=== PATIENT | female | born 1995 | race Caucasian/White ===

== ENCOUNTER 2019-09-04 18:26 | Emergency (ER) | payer BC ==
[2019-09-04 20:13] LABS: BLOOD UREA NITROGEN,BUN 11 mg/dL (7.0-18.0); CARBON DIOXIDE,CO2 26.1 mmol/L (21.0-32.0); CHLORIDE,CL 103 mmol/L (98-107); GLUCOSE RANDOM 96 mg/dL (74-106); POTASSIUM,K 3.8 mmol/L (3.5-5.1); SODIUM,NA 139 mmol/L (136-145)
--- NOTE | 2019-09-04 20:14 | EDM.PDOC ---
ED HPI GENERAL MEDICAL PROBLEM - General Chief Complaint: Headache Stated Complaint: MEMORY LOSS, MIGRAINE Time Seen by Provider: 09/04/19 19:01 Source of Information: Reports: Patient - History of Present Illness INITIAL COMMENTS - FREE TEXT/NARRATIVE: THEODORA HPI: This is a 24-year-old female that had a migrating headache for a week. It is not severe or sudden in onset. It is a minor headache. Patient also says she is having difficulty concentrating and feeling lightheaded when she stands up. Patient's last period was over a month ago. No significant bleeding no vomiting nausea diarrhea constipation abdominal pain dysuria polyuria or trauma to the head. No chest pain or palpitations ports sleeping less than 6 hours per night she is busy with her 3-year-old PMHX/PSHX: Negative Social History: Negative for tobacco, negative for alcohol, negative for street drugs or marijuana Family history: Hypertension ROS: see chart PE: VS afebrile vital signs stable General: No apparent distress Head: Atraumatic normocephalic no lumps bumps or bruises Eyes: EOMI PERRLA Ears: TMs intact no hemotympanum no signs of infection no mastoid tenderness Nose: No epistaxis nares patent no septal wall hematoma Throat: No pharyngeal erythema or exudate no tonsillar enlargement Neck: Supple, no cervical lymphadenopathy Chest wall: No point tenderness Heart: Regular rate and rhythm without murmur gallop or rub Lungs: Clear to auscultation and percussion without rales rhonchi or wheeze Abdomen: Soft nontender nondistended without guarding rigidity or rebound Neck: No spinal point tenderness full range of motion in all 6 directions Back: No spinal paraspinal or CVA tenderness Extremities: full rom through out. no effusions skin: Warm dry intact no rashes neurologic: cranial nerves II through XII intact. No focal motor or sensory deficits noted. NIH of 0. No cerebellar signs. Normal gait. Normal heel-to- toe. MDM: Differential diagnosis: Intracranial bleed tumor mass stroke anemia electrolyte abnormality ED course: Patient has no history or signs of trauma therefore CT imaging not indicated. Neurologic exam is entirely normal therefore no signs of a CVA. Patient not at risk for thrombotic headache. Headache not at all consistent with a subarachnoid hemorrhage in that it is not the worst headache of her life nor is it sudden in onset. CBC and chemistries and test are negative. No signs of anemia. I suspect the symptoms may be secondary to lack of sleep I have suggested patient try to get a full night sleep for the next few nights and then follow-up with her primary care doctor as needed for further outpatient evaluation no signs of any intercranial neurologic or other emergency. Orthostatics negative. No one else that is in the house has similar symptoms so I do not think this is a carbon monoxide issue. Patient stable for discharge Diagnosis: Headache Disposition: Home headache Pain Score (Numeric/FACES): 3 - Related Data Allergies Allergy/AdvReac Type Severity Reaction Status Date / Time tramadol Allergy Anaphylactic Verified 09/04/19 19:01 Shock Home Meds: Home Meds Iron,Carbonyl/Vit C/Vit B12/Fa [Iron 100 Plus Tablet] 1 tab PO DAILY 09/04/19 [ History] Norethindrone-E.estradiol-Iron [Junel Fe 1.5 MG-30 MCG] 1 tab PO DAILY 09/04/19 [History] Past Medical History [employer] History: Reports: , Other (See Below) Other [employer] History: ovarian cysts Social & Family History - Tobacco Use Smoking Status *Q: Former Smoker Used Tobacco, but Quit: Yes Month/Year Tobacco Last Used: 06/2019 - Caffeine Use Caffeine Use: Reports: Coffee, Soda - Recreational Drug Use Recreational Drug Use: No ED ROS GENERAL - Review of Systems Review Of Systems: Comprehensive ROS is negative, except as noted in HPI. - Physical Exam Exam: See Below Text/Narrative:: See my dictation Course - Vital Signs Last Recorded V/S: Last Vital Signs Temp 36.4 C 09/04/19 19:03 Pulse 102 H 09/04/19 19:03 Resp 16 09/04/19 19:03 BP 112/73 09/04/19 19:03 Pulse Ox 100 09/04/19 19:03 - Orders/Labs/Meds Orders: Active Orders 24 hr Category Date Time Status BMP [BASIC METABOLIC PANEL,BMP] [CHEM] Stat Lab 09/04/19 19:50 Received Labs: Laboratory Tests 09/04/19 09/04/19 09/04/19 Range/Units 19:43 19:43 19:50 WBC 8.49 (4.0-11.0) K/uL RBC 4.96 (4.30-5.90) M/uL Hgb 15.1 (12.0-16.0) g/dL Hct 43.4 (36.0-46.0) % MCV 87.5 (80.0-98.0) fL MCH 30.4 (27.0-32.0) pg MCHC 34.8 (31.0-37.0) g/dL RDW Std Deviation 40.3 (28.0-62.0) fl RDW Coeff of Maral 13 (11.0-15.0) % Plt Count 251 (150-400) K/uL MPV 9.70 (7.40-12.00) fL Neut % (Auto) 63.9 (48.0-80.0) % Lymph % (Auto) 30.5 (16.0-40.0) % [place] % (Auto) 4.7 (0.0-15.0) % Eos % (Auto) 0.7 (0.0-7.0) % Baso % (Auto) 0.2 (0.0-1.5) % Neut # (Auto) 5.4 (1.4-5.7) K/uL Lymph # (Auto) 2.6 H (0.6-2.4) K/uL [place] # (Auto) 0.4 (0.0-0.8) K/uL Eos # (Auto) 0.1 (0.0-0.7) K/uL Baso # (Auto) 0.0 (0.0-0.1) K/uL Nucleated RBC % 0.0 /100WBC Nucleated RBCs # 0 K/uL Urine Color YELLOW Urine Appearance HAZY Urine pH 7.0 (5.0-8.0) Ur Specific [place] 1.015 (1.001-1.035) Urine Protein NEGATIVE (NEGATIVE) mg/dL Urine Glucose (UA) NEGATIVE (NEGATIVE) mg/dL Urine Ketones 40 H (NEGATIVE) mg/dL Urine Occult Blood NEGATIVE (NEGATIVE) Urine Nitrite POSITIVE H (NEGATIVE) Urine Bilirubin NEGATIVE (NEGATIVE) Urine Urobilinogen 0.2 (<2.0) EU/dL Ur Leukocyte Esterase NEGATIVE (NEGATIVE) Urine RBC 0-3 (0-2/HPF) Urine WBC 0-3 (0-5/HPF) Ur Epithelial Cells OCCASIONAL (NONE-FEW) Urine Bacteria 1+ H (NEGATIVE) Urine HCG, Qual NEGATIVE (NEGATIVE) Departure - Departure Time of Disposition: 20:13 Disposition: Home, Self-Care 01 Clinical Impression: Tension-type headache - Discharge Information Referrals: PCP,None [Primary Care Provider] - Additional Instructions: Fluids. Get plenty of rest. Try to get at least 8 hours of uninterrupted sleep. Follow-up with your primary care doctor for ongoing symptoms. Take Tylenol or ibuprofen for your headache. Sepsis Event Note - Evaluation Sepsis Screening Result: No Definite Risk - Focused Exam Vital Signs: Vital Signs Temp Pulse Resp BP Pulse Ox 09/04/19 19:03 36.4 C 102 H 16 112/73 100 Date Exam was Performed: 09/04/19 Time Exam was Performed: 20:10 - My Orders Last 24 Hours: My Active Orders 09/04/19 19:50 BMP [BASIC METABOLIC PANEL,BMP] [CHEM] Stat - Assessment/Plan Last 24 Hours: My Active Orders 09/04/19 19:50 BMP [BASIC METABOLIC PANEL,BMP] [CHEM] Stat
== END 2019-09-04 20:22 | disposition home or self-care (01) ==
LOC: MW.ED 18:26
DX: G44.209 Tension-type headache, unspecified, not intractable (principal); Z88.5 Allergy status to narcotic agent; Z87.891 Personal history of nicotine dependence
CPT/HCPCS: 36415; 80048; 81001; 81025; 85025; 99284